=== PATIENT | female | born 1940 | race Caucasian/White ===

== ENCOUNTER 2016-12-20 13:05 | Outpatient (CLI) | payer OTHER ==
--- NOTE | 2016-12-27 08:54 | DIAGNOSTIC IMAGING REPORT ---
PROCEDURE: 2 day sestamibi interpretation CLINICAL INDICATION: Shortness of breath TECHNIQUE: 30 mCi of tech sestamibi was injected 20 seconds after the injection of Lexiscan with SPECT tomography then performed The next business day the patient return a rest study with 30 mCi of tech sestamibi injected at rest with SPECT tomography then performed COMPARISON: None available FINDINGS: Left Ventricular size is normal. The LV with stress exhibits no ischemic defects. Breast artifact is apparent and apical slight is left appreciated. Left Ventricular size is normal with an ejection fraction is 60% with normal contraction. T.i.d. is normal at 1.04. IMPRESSION: No evidence for ischemic defects Breast artifact an apical slight appreciated Ejection fraction 60% with normal contraction Normal LV size Comment: This is a low risk study
== END 2016-12-20 23:00 ==
LOC: RT SRH 13:05
PROC: 4A02XM4 Measurement of Cardiac Total Activity, External Approach (ICD-10-PCS; principal; 2016-12-20)
PROC: 3E073KZ Introduction of Other Diagnostic Substance into Coronary Artery, Percutaneous Approach (ICD-10-PCS; 2016-12-20)
DX: E61.1 Iron deficiency (principal); E11.9 Type 2 diabetes mellitus without complications